=== PATIENT | female | born 1980 | race African-American/Black ===

== ENCOUNTER 2020-01-03 16:20 | Inpatient (IN) | payer OTHER ==
[2020-01-05] MEDS ORDERED: OXYTOCIN/NORMAL SALINE 20 UNIT/1,000 ML RTUINJ ONE (08:15)
[2020-01-05] MEDS ORDERED: LIDOCAINE 1% INJ-PF (10 MG/ML) 30 ML SDV ONE (08:15)
[2020-01-05] MEDS ORDERED: MISOPROSTOL 0.2 MG TABLET ONE (08:15)
[2020-01-05] MEDS ORDERED: OXYTOCIN 10 UNIT/ML VIAL ONE (08:15)
[2020-01-05] MEDS ORDERED: OXYTOCIN/NORMAL SALINE 20 UNIT/1,000 ML RTUINJ IV PRN ×2 (08:20→20:23)
[2020-01-05] MEDS ORDERED: RINGERS SOLUTION,LACTATED 1,000 ML IV PRN (08:22)
[2020-01-05 08:44] LABS: APPEARANCE,URINE CLOUDY; BILIRUBIN,URINE NEGATIVE (NEGATIVE); COLOR,URINE AMBER; GLUCOSE, URINE NEGATIVE (NEGATIVE); KETONES,URINE NEGATIVE (NEGATIVE); LEUKOCYTE ESTERASE,URINE LARGE (NEGATIVE); NITRITE,URINE NEGATIVE (NEGATIVE); PROTEIN,URINE 30 mg/dL (NEGATIVE); URINE SPECIFIC GRAVITY 1.024; UROBILINOGEN,URINE NEGATIVE mg/dL (<2.0)
[2020-01-05 08:58] LABS: URINE AMPHETAMINES SCREEN NEGATIVE; URINE BARBITURATES SCREEN NEGATIVE; URINE BENZODIAZEPINES SCREEN NEGATIVE; URINE COCAINE SCREEN NEGATIVE; URINE MARIJUANA (THC) SCREEN NEGATIVE; URINE METHADONE SCREEN NEGATIVE; URINE PHENCYCLIDINE SCREEN NEGATIVE
[2020-01-05 09:19] LABS: HEMATOCRIT 35.2 % (36.0-47.0); HEMOGLOBIN 12.6 g/dL (12.0-15.5); MEAN CORPUSCULAR HEMOGLOBIN 32.3 pg (27.0-33.4); MEAN CORPUSCULAR HGB CONC 35.7 g/dL (32.0-36.0); MEAN CORPUSCULAR VOLUME 91 fl (80-97); PLATELET COUNT 161 10^3/uL (150-450); RED BLOOD COUNT 3.89 10^6/uL (3.72-5.28); RED CELL DISTRIBUTION WIDTH 14.6 % (11.5-14.0); WHITE BLOOD COUNT 6.7 10^3/uL (4.0-10.5)
[2020-01-05] MEDS ORDERED: EPHEDRINE SULFATE INJ 50 MG/1 ML AMPULE ONE (12:31)
[2020-01-05] MEDS ORDERED: FENTANYL/BUPIVACAINE/NS/PF 300 MCG/150 ML RTUINJ EPI ONE (12:31)
[2020-01-05] MEDS ORDERED: BUPIVACAINE HCL 0.25 % INJ/PF (2.5 MG/1 ML) 30 ML VIAL ONE (12:31)
--- NOTE | 2020-01-05 14:12 | Admission Physical ---
Datetime Report Generated by CPN: 01/05/2020 14:12 CURRENT ADMISSION Chief Complaint: Scheduled Induction of Labor Indication for Induction: Maternal Diabetes; Other Indication for Induction- Other: Advanced maternal age Admit Impression : Term, Intrauterine ; Intact Membranes; Induction of Labor Admit Plan: Admit to Unit; Initiate Labor Induction Protocol ALLERGIES Medication Allergies: No Medication Allergies: No Known Allergies (01/05/2020) OBSTETRICAL HISTORY EDC: 01/03/2020 00:00 : 4 Para: 3 Term: 3 : 0 SAB: 0 IAB: 0 Ectopic: 0 Livin Cesareans: 0 VBACs: 0 Multiple Births: 0 Gestational Diabetes: Yes Rh Sensitization: No Incompetent Cervix: No CORIN: No Infertility: No ART Treatment: No Uterine Anomaly: No IUGR: No Hx Previous C/S: No Macrosomia: No Hx Loss/Stillborn: No PIH: No Hx : No Placenta Previa/Abruption: No Depression/PP Depression: No PTL/PROM: No Post Hemorrhage: No Current Procedures: Ultrasound; NST Obstetrical History Comments: G1-09/19/1996, full term, vaginal G2-03/30/2005, full term, vaginal G3-05/28/2007, full term, vaginal G4- Current SEE RECORDS Alcohol: No Marijuana : No Cocaine: No Other Illicit Drugs: No Cigarettes: Never Smoker. [id number] MEDICAL HISTORY Diabetes: No Blood Transfusion: No Pulmonary Disease (Asthma, TB): No Breast Disease: No Hypertension: No Central Supply Nurse Surgery: No Heart Disease: No Hosp/Surgery: No Autoimmune Disorder: No Anesthetic Complications: No Kidney Disease: No Abnormal Pap Smear: No Neuro/Epilepsy: No Psychiatric Disorders: No Other Medical Diseases: No Hepatitis/Liver Disease: No Significant Family History: No Varicosities/Phlebitis: No Trauma/Violence : No Thyroid Dysfunction: No INFECTIOUS HISTORY Gonorrhea: No Genital Herpes: No Chlamydia: No Tuberculosis: No Syphilis: No Hepatitis: No HIV/AIDS Exposure: No Rash or Viral Illness: No HPV: No PHYSICAL EXAM General: Normal HEENT: Normal Neurologic: Normal Thyroid: Normal Heart: Normal Lungs: Normal Breast: Normal Back: Normal Abdomen: Normal Genitourinary Exam: Normal Extremities: Normal DTRs: Normal Pelvic Type: Adequate Vital Signs: Reviewed; Within Normal Limits VAGINAL EXAM Contraction Comments: q5-8 MEMBRANES Membranes: Ruptured Amniotic Fluid Color: Meconium, Light FETUS A EGA: 40.2 Monitoring: External US FHR- Baseline: 150 Variability: Moderate 6-25bpm Accelerations: 15X15 Decelerations: None Admit Comment: at 40.2 wks here for IOL, Hx GDM-DC and AMA. GBS negative. Pt comfortable, denies SROM or strong contractions today. EFW vis leapolds 8+12. Pt states her other babies were all at least 8 lbs, but cant remember the exact weights. Ve per RN this morning pt remains 1 / -1 with a soft cervix. PLan to start Pitocin, then AROM once pt is making cervical change. Attending MD is Dr Hinkle, and aware of pts status. PLANS FOR LABOR AND DELIVERY Pain Management: Epidural Feeding Preference: Both Benefit of Breast Feed Discussed: Yes Circumcision: No INFORMED CONSENT Assignment: Sadnra Hinkle MD Signature: with User ID: Pam : with User ID: [email or web address]
[2020-01-05] MEDS ORDERED: GLYCERIN/WITCH HAZEL LEAF 1 EACH MED..WIPE TP PRN (20:23)
[2020-01-05] MEDS ORDERED: DIBUCAINE 1% OINTMENT 28 GM TP PRN (20:23)
[2020-01-05] MEDS ORDERED: MISOPROSTOL 0.2 MG TABLET PR PRN (20:23)
[2020-01-05] MEDS ORDERED: DIPH/PERTUSS(ACELL)/TETANUS VAC/PF 0.5 ML SYR (>=10YO) IM PRN (20:23)
[2020-01-05] MEDS ORDERED: ACETAMINOPHEN WITH CODEINE #3 TABLET PO PRN ×2 (20:23)
[2020-01-05] MEDS ORDERED: PROMETHAZINE HCL INJ 25 MG/1 ML VIAL IV PRN (20:23)
[2020-01-05] MEDS ORDERED: PSEUDOEPHEDRINE HCL 30 MG TABLET PO PRN (20:23)
[2020-01-05] MEDS ORDERED: PROMETHAZINE HCL 25 MG SUPP.RECT PR PRN (20:23)
[2020-01-05] MEDS ORDERED: BENZOCAINE/MENTHOL AEROSOL SPRAY 56 ML TOP PRN (20:23)
[2020-01-05] MEDS ORDERED: ZOLPIDEM TARTRATE 5 MG TABLET PO PRN (20:23)
[2020-01-05] MEDS ORDERED: DIPHENHYDRAMINE HCL 25 MG CAPSULE PO PRN (20:23)
[2020-01-05] MEDS ORDERED: NA PHOS,M-B/NA PHOS,DI-BA (ADULT) 133 ML ENEMA PR PRN (20:23)
[2020-01-05] MEDS ORDERED: MEASLES,MUMPS&RUBELLA VACC/PF 0.5 ML VIAL SUBCUT PRN (20:23)
[2020-01-05] MEDS ORDERED: MAGNESIUM HYDROXIDE SUSP 30 ML UDCUP PO PRN (20:23)
[2020-01-05] MEDS ORDERED: PROMETHAZINE HCL 25 MG TABLET PO PRN (20:23)
[2020-01-05] MEDS ORDERED: ACETAMINOPHEN 325 MG TABLET PO PRN (20:23)
[2020-01-05] MEDS ORDERED: NIFEDIPINE 30 MG TAB.ER.24 PO ONE (21:09)
[2020-01-05] MEDS: NIFEDIPINE 30 MG TAB.ER.24 PO SCH (21:11)
[2020-01-05 21:24] LABS: ABSOLUTE LYMPHOCYTES (AUTO) 0.9 10^3/uL (0.5-4.7); ABSOLUTE MONOCYTES (AUTO) 0.9 10^3/uL (0.1-1.4); ABSOLUTE NEUT (AUTO) 7.3 10^3/uL (1.7-8.2); BASOPHILS % (AUTO) 0.4 % (0-2); EOSINOPHILS % (AUTO) 0.1 % (0-6); HEMATOCRIT 34.5 % (36.0-47.0); HEMOGLOBIN 12.4 g/dL (12.0-15.5); LYMPHOCYTES % (AUTO) 9.8 % (13-45); MEAN CORPUSCULAR HEMOGLOBIN 32.9 pg (27.0-33.4); MEAN CORPUSCULAR HGB CONC 35.8 g/dL (32.0-36.0); MEAN CORPUSCULAR VOLUME 92 fl (80-97); MONOCYTES % (AUTO) 9.9 % (3-13); PLATELET COUNT 133 10^3/uL (150-450); RED BLOOD COUNT 3.76 10^6/uL (3.72-5.28); RED CELL DISTRIBUTION WIDTH 14.7 % (11.5-14.0); SEGMENTED NEUTROPHILS % (AUTO) 79.8 % (42-78); TOTAL CELLS COUNTED % (AUTO) 100 %; WHITE BLOOD COUNT 9.1 10^3/uL (4.0-10.5)
[2020-01-05 21:42] LABS: ALBUMIN 2.9 g/dL (3.5-5.0); ALKALINE PHOSPHATASE 195 U/L (38-126); ANION GAP 6 (5-19); ASPARTATE AMINO TRANSFERASE 24 U/L (14-36); BILIRUBIN,DIRECT 0.1 mg/dL (0.0-0.4); BILIRUBIN,TOTAL 0.7 mg/dL (0.2-1.3); BLOOD UREA NITROGEN 6 mg/dL (7-20); CALCIUM 8.6 mg/dL (8.4-10.2); CARBON DIOXIDE 21 mmol/L (22-30); CHLORIDE 107 mmol/L (98-107); GLUCOSE 96 mg/dL (75-110); POTASSIUM 3.9 mmol/L (3.6-5.0); TOTAL PROTEIN 6.5 g/dL (6.3-8.2); URIC ACID 6.2 mg/dL (2.5-7.0)
--- NOTE | 2020-01-05 21:56 | Delivery Summary ---
Del Sum A-C Datetime Report Generated by CPN: 01/05/2020 21:55 DELIVERY PERSONNEL DELIVERY PERSONNEL: [id number] Delivery Doctor:: Sandra Hinkle MD Anesthesiologist:: Demetrius Cárdenas MD Labor and Delivery Nurse:: Haley Sierra RN Nursery Nurse:: Bridget Santos RN Print Designer/BUSINESS MGR: Coral Roque CNA II MATERNAL INFORMATION Delivery Anesthesia: Epidural Medications After Delivery: Pitocin Drip 20 Units/1000ml NSS; Cytotec 1000mcg Per Rectum/Vagina Estimated Blood Loss (ml): 100 Maternal Complications: None Provider Comments: VMI delivered in SARA presentation with nuchal and compound cord. Shoulders and body delivered without difficulty. Cord doubly clamped and cut. Infant to warmer for NRP. Placenta delivered intact spontaneously. FF at U then atony responded to pitocin and 1000mcg pitocin ND. Good hemostasis. No perineal lacerations. Mother and baby stable upon provider leaving the room. LABOR SUMMARY EDC: 01/03/2020 00:00 No. Babies in Womb: 1 Attempted: No Labor Anesthesia: Epidural LABOR INFORMATION Reason for Induction: Maternal Diabetes Onset of Labor: 01/05/2020 13:46 Complete Dilatation: 01/05/2020 19:26 Oxytocin: Induction Group B Beta Strep: negative Antibiotics # of Doses: 0 Steroids Given: None Reason Steroids Not Administered: Not Applicable MEMBRANES Membranes Rupture Method: Artificial Rupture of Membranes: 01/05/2020 11:12 Length of Rupture (hr): 8.52 Amniotic Fluid Color: Light Meconium Amniotic Fluid Amount: Small STAGES OF LABOR Stage 1 hr: 5 Stage 1 min: 40 Stage 2 hr: 0 Stage 2 min: 17 Stage 3 hr: 0 Stage 3 min: 2 Total Time in Labor hr: 5 Total Time in Labor min: 59 VAGINAL DELIVERY Episiotomy: None Laceration #1: None Laceration Extension #1: N/A Laceration Repair: Not Applicable Sponge Count Correct: Yes Sharps Count Correct: Yes CSECTION DELIVERY Primary Indication: N/A Secondary Indication: N/A CSection Incidence: N/A Labor: N/A Elective: N/A CSection Incision: N/A BABY A INFORMATION Infant Delivery Date/Time: 01/05/2020 19:43 Method of Delivery: Vaginal Nurse Controlled Delivery: No Born in Route : No : N/A Forceps: N/A Vacuum Extraction: N/A Shoulder Dystocia : No PRESENTATION/POSITION BABY A Presentation: Cephalic Cephalic Presentation: Vertex Vertex Position: Right Occipital Anterior Breech Presentation: N/A PLACENTA INFORMATION BABY A Placenta Delivery Time : 01/05/2020 19:45 Placenta Method of Delivery: Spontaneous Placenta Status: Delivered SCORES BABY A Heart Rate 1 min: >100 bpm Resp Effort 1 min: Slow, Irregular Reflex Irritability 1 min: Cough or Sneeze or Pulls Away Muscle Tone 1 min: Flaccid Color 1 min: Body [place], Extremities Blue Resuscitation Effort 1 min: Tactile Stimulation SCORE 1 MIN: 6 Heart Rate 5 min: >100 bpm Resp Effort 5 min: Good Cry Reflex Irritability 5 min: Cough or Sneeze or Pulls Away Muscle Tone 5 min: Active Motion Color 5 min: Body [place], Extremities Blue SCORE 5 MIN: 9 INFORMATION BABY A Gestational Age at Delivery: 40.2 Gestational Status: Full Term- 39- 40.6 Weeks Infant Outcome : Liveborn Infant Condition : Stable Infant Sex: Male IDENTIFICATION BABY A Infant Verification Date/Time: 01/05/2020 20:08 ID Band Number: [id number] Mother's Name Verified: Yes RN Verifying Infant: AshleyPatrick Sierra RN Additional Verifying Personnel: US Jen WEIGHT/LENGTH BABY A Birthweight (gm): 4236 Weight (lb): 9 Infant Weight (oz): 5 Length (in): 21.00 Length (cm): 53.34 CORD INFORMATION BABY A No. Cord Vessels: 3 Nuchal Cord : Around Neck x1, Loose Nuchal Cord- Other: compound Cord Blood Taken: Yes-For Eval (Mom's Blood Type - or O+) Suction: Mouth; Nose SIGNATURES Signature: with User ID: [email or web address]
[2020-01-05] MEDS ORDERED: HYDRALAZINE HCL INJ/PF 20 MG/1 ML SDV ONE (22:51)
[2020-01-06] MEDS ORDERED: IBUPROFEN 800 MG TABLET ONE (00:02)
[2020-01-06] MEDS: IBUPROFEN 800 MG TABLET PO SCH ×4 (00:04→21:18)
[2020-01-06] MEDS ORDERED: HYDRALAZINE HCL INJ/PF 20 MG/1 ML SDV IV ONE (00:34)
[2020-01-06] MEDS: FAMOTIDINE 20 MG TABLET PO SCH ×3 (03:14→21:19)
[2020-01-06 07:07] LABS: RED CELL DISTRIBUTION WIDTH 14.6 % (11.5-14.0)
[2020-01-06 07:12] LABS: HEMATOCRIT 32.3 % (36.0-47.0); HEMOGLOBIN 11.6 g/dL (12.0-15.5); MEAN CORPUSCULAR HEMOGLOBIN 32.5 pg (27.0-33.4); MEAN CORPUSCULAR HGB CONC 35.8 g/dL (32.0-36.0); MEAN CORPUSCULAR VOLUME 91 fl (80-97); PLATELET COUNT 136 10^3/uL (150-450); RED BLOOD COUNT 3.55 10^6/uL (3.72-5.28); WHITE BLOOD COUNT 12.1 10^3/uL (4.0-10.5)
--- NOTE | 2020-01-06 09:04 | PDOC PROGRESS REPORT ---
Subjective-OB Progress Note for:: 01/06/20 Subjective: doing well, no c/o, voiding, eating well Physical Exam (OB) Vital Signs: Temp Pulse Resp BP Pulse Ox 98.3 F 67 18 119/61 99 01/06/20 07:44 01/06/20 07:44 01/06/20 07:44 01/06/20 07:44 01/06/20 07:44 Intake & Output 01/05/20 01/06/20 01/07/20 06:59 06:59 06:59 Output Total 300 Balance -300 Weight 111.1 kg Objective-Diagnostic Laboratory: 01/06/20 06:05 01/05/20 21:14 01/05/20 01/05/20 01/05/20 08:43 08:43 21:14 WBC 6.7 9.1 RBC 3.89 3.76 Hgb 12.6 12.4 Hct 35.2 L 34.5 L MCV 91 92 MCH 32.3 32.9 MCHC 35.7 35.8 RDW 14.6 H 14.7 H Plt Count 161 133 L Seg Neutrophils % 79.8 H Sodium Potassium Chloride Carbon Dioxide Anion Gap BUN Creatinine Est GFR ( Amer) Glucose Uric Acid Calcium Total Bilirubin AST Alkaline Phosphatase Total Protein Albumin Blood Type O POSITIVE Antibody Screen NEGATIVE 01/05/20 01/06/20 21:14 06:05 WBC 12.1 H RBC 3.55 L Hgb 11.6 L Hct 32.3 L MCV 91 MCH 32.5 MCHC 35.8 RDW 14.6 H Plt Count 136 L Seg Neutrophils % Sodium 133.6 L Potassium 3.9 Chloride 107 Carbon Dioxide 21 L Anion Gap 6 BUN 6 L Creatinine 0.53 Est GFR ( Amer) > 60 Glucose 96 Uric Acid 6.2 Calcium 8.6 Total Bilirubin 0.7 AST 24 Alkaline Phosphatase 195 H Total Protein 6.5 Albumin 2.9 L Blood Type Antibody Screen Assessment and Plan(PN) - Assessment and Plan (1) Vaginal delivery Is this a current diagnosis for this admission?: Yes (2) Meconium stained amniotic fluid, delivered, current hospitalization Is this a current diagnosis for this admission?: Yes (3) Post-dates Is this a current diagnosis for this admission?: Yes - Time Spent with Patient Time with patient: Less than 15 minutes Medications reviewed and adjusted accordingly: Yes - Disposition Anticipated Discharge: Home Within: within 24 hours
[2020-01-06] MEDS: DOCUSATE SODIUM 100 MG CAPSULE PO SCH ×2 (09:48→17:33)
[2020-01-06] MEDS: NIFEDIPINE 30 MG TAB.ER.24 PO SCH (09:48)
[2020-01-06] MEDS: PRENATAL VITAMIN W DHA CAPSULE PO SCH (09:48)
[2020-01-06] MEDS: FERROUS SULFATE 325 MG TABLET PO SCH ×2 (09:48→17:33)
[2020-01-06] MEDS: SENNOSIDES/DOCUSATE 8.6-50 MG 1 EACH TABLET PO SCH (09:48)
[2020-01-06] MEDS ORDERED: DIPH/PERTUSS(ACELL)/TETANUS VAC/PF 0.5 ML SYR (>=10YO) IM PRN (15:30)
[2020-01-06] MEDS ORDERED: PROMETHAZINE HCL INJ 25 MG/1 ML VIAL IV PRN (15:30)
[2020-01-06] MEDS ORDERED: MEASLES,MUMPS&RUBELLA VACC/PF 0.5 ML VIAL SUBCUT PRN (15:30)
[2020-01-07] MEDS: IBUPROFEN 800 MG TABLET PO SCH (05:10)
--- NOTE | 2020-01-07 09:42 | PDOC PROGRESS REPORT ---
Subjective-OB Progress Note for:: 01/07/20 Subjective: OOB in room, ready to go home, breast and bottle, eating and voiding, scant lochia Physical Exam (OB) Vital Signs: Temp Pulse Resp BP Pulse Ox 97.6 F 70 18 129/78 H 98 01/07/20 07:30 01/07/20 07:30 01/07/20 07:30 01/07/20 07:30 01/07/20 07:30 Intake & Output 01/06/20 01/07/20 01/08/20 06:59 06:59 06:59 Intake Total 400 Output Total 300 Balance -300 400 Weight 111.1 kg - PIH/Pre-Eclampsia DTR's: 1 + Clonus: Negative Headache: Present Epigastric Pain: No Visual Changes: No - Lochia Lochia Amount: Scant < 10 ml Lochia Color: Rubra/Red - Abdomen Description: Soft Hernia Present: No Fundal Description: Firm, Midline Fundal Height: u/u - u/2 Objective-Diagnostic Laboratory: 01/06/20 06:05 01/05/20 21:14 Assessment and Plan(PN) - Assessment and Plan (1) Vaginal delivery Is this a current diagnosis for this admission?: Yes (2) Meconium stained amniotic fluid, delivered, current hospitalization Is this a current diagnosis for this admission?: Yes (3) Post-dates Qualifiers: Post-term type: 40-42 weeks gestation Qualified Code(s): O48.0 - Post-term Is this a current diagnosis for this admission?: Yes - Time Spent with Patient Time with patient: Less than 15 minutes Medications reviewed and adjusted accordingly: Yes - Disposition Anticipated Discharge: Home Within: within 24 hours
--- NOTE | 2020-01-07 09:50 | PDOC DISCHARGE SUMMARY ---
Impression - Admit/DC Date/PCP Admission Date/Primary Care Provider: 01/05/20 06:39 Discharge Date: 01/07/20 - Discharge Diagnosis (1) Vaginal delivery Is this a current diagnosis for this admission?: Yes (2) Meconium stained amniotic fluid, delivered, current hospitalization Is this a current diagnosis for this admission?: Yes (3) Post-dates Is this a current diagnosis for this admission?: Yes - Additional Information Resuscitation Status: Full Code Discharge Diet: As Tolerated, Regular Discharge Activity: Activity As Tolerated, Pelvic Rest Referrals: BERNARD PERAZA MD [ACTIVE STAFF] - ([facility] 1-2 weeks) Prescriptions: Nifedipine [Procardia XL 30 mg Tablet] 30 mg PO DAILY #30 tab.er.24 Home Medications: Nifedipine [Procardia XL 30 mg Tablet] 30 mg PO DAILY #30 tab.er.24 01/07/20 Vit/Dha [ Multi + Dha Capsule] 1 cap PO DAILY capsule 01/07/20 HPI Gestational Age: 40.2 Reason(s) for Admission: Induction of Labor, Gestional Diabetes Procedures: NST, Ultrasound Intrapartum Procedure(s): Spontaneous Vaginal Delivery Hospital Course Hospital Course: routine Results Laboratory Results: WBC 12.1 10^3/uL (4.0-10.5) H 01/06/20 06:05 RBC 3.55 10^6/uL (3.72-5.28) L 01/06/20 06:05 Hgb 11.6 g/dL (12.0-15.5) L 01/06/20 06:05 Hct 32.3 % (36.0-47.0) L 01/06/20 06:05 MCV 91 fl (80-97) 01/06/20 06:05 MCH 32.5 pg (27.0-33.4) 01/06/20 06:05 MCHC 35.8 g/dL (32.0-36.0) 01/06/20 06:05 RDW 14.6 % (11.5-14.0) H 01/06/20 06:05 Plt Count 136 10^3/uL (150-450) L 01/06/20 06:05 Lymph % (Auto) 9.8 % (13-45) L 01/05/20 21:14 [place] % (Auto) 9.9 % (3-13) 01/05/20 21:14 Eos % (Auto) 0.1 % (0-6) 01/05/20 21:14 Baso % (Auto) 0.4 % (0-2) 01/05/20 21:14 Absolute Neuts (auto) 7.3 10^3/uL (1.7-8.2) 01/05/20 21:14 Absolute Lymphs (auto) 0.9 10^3/uL (0.5-4.7) 01/05/20 21:14 Absolute Monos (auto) 0.9 10^3/uL (0.1-1.4) 01/05/20 21:14 Absolute Eos (auto) 0.0 10^3/uL (0.0-0.6) 01/05/20 21:14 Absolute Basos (auto) 0.0 10^3/uL (0.0-0.2) 01/05/20 21:14 Seg Neutrophils % 79.8 % (42-78) H 01/05/20 21:14 Sodium 133.6 mmol/L (137-145) L 01/05/20 21:14 Potassium 3.9 mmol/L (3.6-5.0) 01/05/20 21:14 Chloride 107 mmol/L (98-107) 01/05/20 21:14 Carbon Dioxide 21 mmol/L (22-30) L 01/05/20 21:14 Anion Gap 6 (5-19) 01/05/20 21:14 BUN 6 mg/dL (7-20) L 01/05/20 21:14 Creatinine 0.53 mg/dL (0.52-1.25) 01/05/20 21:14 Est GFR ( Amer) > 60 (>60) 01/05/20 21:14 Est GFR (MDRD) Non-Af > 60 (>60) 01/05/20 21:14 Glucose 96 mg/dL (75-110) 01/05/20 21:14 POC Glucose 91 mg/dL (70-110) 01/05/20 07:58 Uric Acid 6.2 mg/dL (2.5-7.0) 01/05/20 21:14 Calcium 8.6 mg/dL (8.4-10.2) 01/05/20 21:14 Total Bilirubin 0.7 mg/dL (0.2-1.3) 01/05/20 21:14 Direct Bilirubin 0.1 mg/dL (0.0-0.4) 01/05/20 21:14 Neonat Total Bilirubin Not Reportable 01/05/20 21:14 Neonat Direct Bilirubin Not Reportable 01/05/20 21:14 Neonat Indirect Bili Not Reportable 01/05/20 21:14 AST 24 U/L (14-36) 01/05/20 21:14 ALT 12 U/L (<35) 01/05/20 21:14 Alkaline Phosphatase 195 U/L (38-126) H 01/05/20 21:14 Lactate Dehydrogenase 200 U/L (120-246) 01/05/20 21:14 Total Protein 6.5 g/dL (6.3-8.2) 01/05/20 21:14 Albumin 2.9 g/dL (3.5-5.0) L 01/05/20 21:14 Urine Color MATILDA 01/05/20 07:50 Urine Appearance CLOUDY 01/05/20 07:50 Urine pH 6.0 (5.0-9.0) 01/05/20 07:50 Ur Specific [place] 1.024 01/05/20 07:50 Urine Protein 30 mg/dL (NEGATIVE) H 01/05/20 07:50 Urine Glucose (UA) NEGATIVE mg/dL (NEGATIVE) 01/05/20 07:50 Urine Ketones NEGATIVE mg/dL (NEGATIVE) 01/05/20 07:50 Urine Blood NEGATIVE (NEGATIVE) 01/05/20 07:50 Urine Nitrite NEGATIVE (NEGATIVE) 01/05/20 07:50 Urine Bilirubin NEGATIVE (NEGATIVE) 01/05/20 07:50 Urine Urobilinogen NEGATIVE mg/dL (<2.0) 01/05/20 07:50 Ur Leukocyte Esterase LARGE (NEGATIVE) H 01/05/20 07:50 Urine WBC (Auto) 19 /HPF 01/05/20 07:50 Urine RBC (Auto) 5 /HPF 01/05/20 07:50 Urine Bacteria (Auto) 3+ /HPF 01/05/20 07:50 Squamous Epi Cells Auto 40 /HPF 01/05/20 07:50 U Non-Squamous Epis Auto 1 /HPF 01/05/20 07:50 Urine Mucus (Auto) MANY /LPF 01/05/20 07:50 Urine Yeast (Budding) PRESENT /HPF 01/05/20 07:50 Urine Ascorbic Acid NEGATIVE (NEGATIVE) 01/05/20 07:50 Urine Opiates Screen NEGATIVE 01/05/20 07:50 Urine Methadone Screen NEGATIVE 01/05/20 07:50 Ur Barbiturates Screen NEGATIVE 01/05/20 07:50 Ur Phencyclidine Scrn NEGATIVE 01/05/20 07:50 Ur Amphetamines Screen NEGATIVE 01/05/20 07:50 U Benzodiazepines Scrn NEGATIVE 01/05/20 07:50 Urine Cocaine Screen NEGATIVE 01/05/20 07:50 U Marijuana (THC) Screen NEGATIVE 01/05/20 07:50 RPR NONREACTIVE (NONREACTIVE) 01/05/20 08:43 Blood Type O POSITIVE 01/05/20 08:43 Antibody Screen NEGATIVE 01/05/20 08:43 Plan Health Concerns: BP Plan of Treatment: discharge home, rev S&S to report Goals: no complications Time Spent: Less than 30 Minutes
[2020-01-07] MEDS: FERROUS SULFATE 325 MG TABLET PO SCH (10:06)
[2020-01-07] MEDS: FAMOTIDINE 20 MG TABLET PO SCH (10:06)
[2020-01-07] MEDS: NIFEDIPINE 30 MG TAB.ER.24 PO SCH (10:06)
[2020-01-07] MEDS: PRENATAL VITAMIN W DHA CAPSULE PO SCH (10:06)
[2020-01-07] MEDS: SENNOSIDES/DOCUSATE 8.6-50 MG 1 EACH TABLET PO SCH (10:06)
[2020-01-07] MEDS: DOCUSATE SODIUM 100 MG CAPSULE PO SCH (10:06)
[2020-01-07 11:38] VITALS: BP 129/74
== END 2020-01-07 12:45 | disposition home or self-care (01) | DRG 807 ==
LOC: LR 01-05 06:39 → 2S 01-06 00:27
PROVIDERS: ADMIT Obstetrics & Gynecology; ATTEND Student in an Organized Health Care Education/Training Program
PROC: 10E0XZZ Delivery of Products of Conception, External Approach (ICD-10-PCS; principal; 2020-01-05)
PROC: 10907ZC Drainage of Amniotic Fluid, Therapeutic from Products of Conception, Via Natural or Artificial Opening (ICD-10-PCS; 2020-01-05)
PROC: 3E0234Z Introduction of Serum, Toxoid and Vaccine into Muscle, Percutaneous Approach (ICD-10-PCS; 2020-01-05)
DX: O48.0 Post-term pregnancy (principal); Z37.0 Single live birth; O77.0 Labor and delivery complicated by meconium in amniotic fluid; O24.420 Gestational diabetes mellitus in childbirth, diet controlled; O69.81X0 Labor and delivery complicated by cord around neck, without compression, not applicable or unspecified; O69.89X0 Labor and delivery complicated by other cord complications, not applicable or unspecified; Z3A.40 40 weeks gestation of pregnancy; Z23 Encounter for immunization
CPT/HCPCS: 36415; 80053; 80307; 81001; 82962; 83615; 84550; 85027; 86592; 86850; 86900; 86901; 90715; C1758; J0360; J2590; J3010; J3490